=== PATIENT | female | born 1940 | race Caucasian/White ===

== ENCOUNTER 2017-06-14 14:26 | Observation (INO) | payer MEDICARE, OTHER ==
[~2017-06-14] VITALS: Ht 147.3 cm; Wt 81.6 kg
[2017-06-14 15:48] VITALS: BP 151/69
[2017-06-14 15:50] LABS: ABSOLUTE LYMPHOCYTES 1.8 thou/uL (0.8-5.3); ABSOLUTE MONOCYTES 0.4 thou/uL (0.0-1.2); ABSOLUTE NEUTROPHILS 2.2 thou/uL (1.6-8.1); BASOPHILS 0.7 %; EOSINOPHILS 0.8 %; HEMATOCRIT 39.4 % (37.0-47.0); HEMOGLOBIN 14.1 gm/dL (12.0-15.0); LYMPHOCYTES 40.4 %; MCHC 35.9 g/dL (28.0-37.0); MCV 100.4 fL (80.0-100.0); MONOCYTES 8.3 %; MPV 9.2 fl. (7.2-11.1); NUCLEATED RBCS 0 /100WBC; PLATELET COUNT* 228 thou/uL (150-400); POLYS 49.8 %; RBC 3.93 mil/uL (4.20-5.00); RDW-CV 14.6 % (10.5-14.5); WBC 4.4 thou/uL (4.0-11.0)
[2017-06-14] MEDS ORDERED: ATENOLOL 100MG100 MG PO (15:52)
[2017-06-14] MEDS ORDERED: ASPIR 8181 MG PO (15:52)
[2017-06-14] MEDS ORDERED: COZAAR 25 MG TA25 M1 PO (15:52)
[2017-06-14] MEDS ORDERED: PROBIOTIC1 EAC1 PO (15:52)
[2017-06-14 15:57] LABS: CALCIUM 9.7 mg/dL (8.5-10.1); CREATININE 1.6 mg/dL (0.6-1.3); POTASSIUM 5.1 mmol/L (3.5-5.1)
[2017-06-14 16:04] LABS: ALBUMIN 3.6 g/dL (3.4-5.0); TOTAL BILIRUBIN 0.3 mg/dL (<0.1-1.0); TOTAL PROTEIN 7.2 g/dL (6.4-8.2)
[2017-06-14 17:32] VITALS: BP 142/76
--- NOTE | 2017-06-14 18:09 | NUR ---
PATIENT ARRIVED TO UNIT AT 1715. ALERT AND ORIENTED X4. DENIES PAIN AND NAUSEA. IV IS PATENT AND INFUSING. PATIENT HAS BEEN ORIENTED TO ROOM. VSS ON ROOM AIR. HOURLY ROUNDS HAVE BEEN MAINTAINED SINCE ARRIVING TO UNIT. NURSING WILL CONTINUE TO MONITOR.
[2017-06-14 18:29] VITALS: BP 197/77
[2017-06-14 20:30] VITALS: BP 185/90
[2017-06-15 00:16] VITALS: BP 172/64
[2017-06-15 00:53] LABS: URINE BILIRUBIN NEGATIVE (Negative); URINE BLOOD TRACE (Negative); URINE CLARITY CLEAR; URINE COLOR YELLOW; URINE GLUCOSE-RANDOM NEGATIVE (Negative); URINE KETONES NEGATIVE (Negative); URINE PROTEIN NEGATIVE (Negative); URINE UROBILINOGEN 0.2 E.U./dl (0.2-1.0)
[2017-06-15 01:06] LABS: URINE LEUKOCYTES-REFLEX 2+ (Negative); URINE NITRITE-REFLEX POSITIVE (Negative)
[2017-06-15 01:40] LABS: CASTS None Seen /LPF (None Seen); SQUAMOUS >10 Many /LPF (0-3); URINE WBC-REFLEX >25 Many /HPF (0-5)
[2017-06-15 01:41] LABS: BACTERIA-REFLEX 1-9 Few /HPF (None Seen); URINE RBC 0-2 Rare /HPF (0-2); WBC CLUMPS Few (None Seen)
[2017-06-15 01:58] LABS: CRYSTALS None Seen /LPF (None Seen)
[2017-06-15 03:50] VITALS: BP 152/68
[2017-06-15 04:47] LABS: CALCIUM 8.6 mg/dL (8.5-10.1); CREATININE 1.5 mg/dL (0.6-1.3); POTASSIUM 4.9 mmol/L (3.5-5.1)
[2017-06-15 05:02] LABS: HEMATOCRIT 33.6 % (37.0-47.0); HEMOGLOBIN 12.6 gm/dL (12.0-15.0); MCH 39.6 pg (26.0-34.0); MCHC 37.4 g/dL (28.0-37.0); MPV 9.4 fl. (7.2-11.1); RBC 3.17 mil/uL (4.20-5.00); RDW-CV 14.7 % (10.5-14.5); WBC 3.5 thou/uL (4.0-11.0)
[2017-06-15 05:05] LABS: MCV 105.7 fL (80.0-100.0)
[2017-06-15 07:45] VITALS: BP 183/68
--- NOTE | 2017-06-15 07:48 | NUR ---
PATIENT ALERT AND ORIENTED. BLOOD PRESSURE ELEVATED DURING THE NIGHT BUT IS IMPROVING. UP INDEPENDENTLY. FLUIDS INFUSING PER ORDER. REPORTS PRODUCTIVE COUGH FOR A COUPLE OF WEEKS. WHEEZES NOTED. PHYSICIAN NOTIFIED CHEST XRAY ORDERED. HOURLY ROUNDS. BED ALARM IN USE. NURSING WILL CONTINUE TO MONITOR.
[2017-06-15] MEDS ORDERED: CEFPODOXIME PR100 MG PO (14:07)
[2017-06-15 16:02] VITALS: BP 183/68
--- NOTE | 2017-06-15 18:44 | NUR ---
PATIENT LEFT UNIT AT 1645. ALERT AND ORIENTED X4. UP AD MI IN ROOM. IV DC'D. DENIES PAIN AND NAUSEA. ALL PERSONAL ITEMS LEFT WITH PATIENT. DISCHARGE INSTRUCTIONS, PRESCRIPTIONS, AND NEW MEDICATION INFORMATION. VSS ON ROOM AIR. HOURLY ROUNDS HAVE BEEN MAINTAINED THROUGHOUT SHIFT. LEFT WITH SISTER VIA CAR.
[2017-06-15 18:47] VITALS: BP 183/68
== END 2017-06-15 16:30 | disposition home or self-care (01) ==
LOC: M.ERS 14:26 → M.TBA-ER 16:15 → M.ORTHSURG 16:20
PROVIDERS: Nurse Practitioner Family; ADMIT Internal Medicine
DX: N39.0 Urinary tract infection, site not specified (principal); I10 Essential (primary) hypertension; N17.9 Acute kidney failure, unspecified; Z86.711 Personal history of pulmonary embolism; Z85.41 Personal history of malignant neoplasm of cervix uteri